=== PATIENT | male | born 1980 | race Caucasian/White ===

== ENCOUNTER 2019-09-15 10:00 | Day surgery (SDC) | payer BC ==
[~2019-09-15] VITALS: Ht 165.1 cm; Wt 118.2 kg
--- NOTE | ~2019-09-15 | OP ---
PATIENT NAME: KAYLIN SIERRA MEDICAL RECORD: [id number] :80 LOCATION:[facility] ADMISSION DATE: SURGEON: KENYON ESCALERA DO DATE OF OPERATION: 09/15/2019 PROCEDURE: Colonoscopy with polypectomy. INDICATIONS FOR PROCEDURE: Occult blood in stools and anemia. SCOPE: Olympus video pediatric colonoscope. MEDICATIONS: Propofol 1150 mg IV per anesthesia. WITHDRAWAL TIME: 8 minutes. ESTIMATED BLOOD LOSS: Minimal. COMPLICATIONS: None. FINDINGS AND DESCRIPTION OF PROCEDURE: Informed consent was given. The patient was made comfortable with the above medication. After reaching an adequate level of sedation by slow IV push, the patient was placed on his left side. A digital rectal examination was performed and it was normal. The endoscope was advanced under direct visualization through the rectum to the cecum, confirmed by the presence of the appendiceal orifice and ileocecal valve. The endoscope was slowly withdrawn and the mucosa was carefully examined. The prep quality was good. There were 5 polyps visualized on today's examination. One was located in the ascending colon. It was benign appearing sessile polyp, which measured approximately 4-5 mm in diameter. It was removed using hot snare and retrieved. In the transverse colon, there were 3 separate polyps, which were all sessile. They ranged in size from 4-mm in diameter to 1 cm in diameter. They were all removed using hot snare and retrieved. In the rectum, there was a single benign-appearing sessile polyp, which measured approximately 5-6 mm in diameter. It was removed using hot snare and retrieved. There were no diverticula visualized on today's examination. Retroflexion was performed in the rectum with visualization of grade I internal hemorrhoids without bleeding. The endoscope was withdrawn from the patient. The patient tolerated the procedure well and there were no complications. IMPRESSIONS: 1. Five polyps as described above, removed using hot snare. 2. Grade I internal hemorrhoids without bleeding. PLAN AND RECOMMENDATIONS: 1. Discharge home when recovery parameters are met. 2. Follow up biopsy specimen results. 3. High fiber diet. 4. Continue current medications. 5. Recall colonoscopy in 2-3 years based on number and size of polyps removed on today's examination. TRANSINT:[id number] Voice Confirmation ID: [id number] DOCUMENT ID: [id number] OPERATIVE REPORT [id number] KAYLIN SIERRA KENYON ESCALERA DO CC: [id number] DICTATION DATE: 09/15/19 1213 TYPE CUTTER: 09/15/19 1702 [facility] 09/15/19 [facility] [address] [id number]
[2019-09-15 10:20] LABS: MCH 27.4 pg (26.0-34.0); MCHC 32.5 g/dL (31.0-37.0); MCV 84.4 fL (80.0-100.0); MEAN PLATELET VOLUME 9.7 fL (7.4-10.4); RBC 4.74 10x6/uL (4.20-6.10); RDW 13.4 % (11.5-14.5); WBC 8.9 10x3/uL (4.8-10.8)
[2019-09-15 10:30] LABS: ANION GAP 13.1 mmol/L (8-16); CALCIUM 9.4 mg/dL (8.5-10.1); CARBON DIOXIDE 24.1 mmol/L (21.0-32.0); CREATININE - SERUM 1.7 mg/dL (0.6-1.3); POTASSIUM - SERUM 4.2 mmol/L (3.5-5.1)
[2019-09-15 11:01] VITALS: BP 145/98; Ht 165.1 cm; Wt 118.2 kg
[2019-09-15] MEDS ORDERED: OMEPRAZOLE40 MG PO (11:19)
[2019-09-15] MEDS ORDERED: ZETIA10 MG PO (11:20)
[2019-09-15] MEDS ORDERED: PRAVACHOL20 MG PO (11:20)
[2019-09-15] MEDS ORDERED: FENOGLIDE40 MG PO (11:21)
[2019-09-15] MEDS ORDERED: FERROUS SULFAT325 MG PO (11:21)
--- NOTE | 2019-09-15 14:00 | NUR ---
1320 DC'D HOME. TAKEN OUT VIA WC TO CAR WITH . ADVISED TO CALL OR COME BACK IF ANY PROBLEMS.
== END 2019-09-15 13:20 | disposition home or self-care (01) ==
LOC: D.OPS 10:00
PROVIDERS: Anesthesiology; ATTEND Internal Medicine Gastroenterology
DX: R19.5 Other fecal abnormalities (principal); D64.9 Anemia, unspecified; D12.6 Benign neoplasm of colon, unspecified; K64.0 First degree hemorrhoids; K21.9 Gastro-esophageal reflux disease without esophagitis

== ENCOUNTER 2019-11-12 05:59 | Day surgery (SDC) | payer BC ==
[~2019-11-12] VITALS: Ht 165.1 cm; Wt 117.7 kg
[~2019-11-12 05:59] MED LIST: FENOGLIDE40 MG PO; FERROUS SULFAT325 MG PO; OMEPRAZOLE40 MG PO; PRAVACHOL20 MG PO; ZETIA10 MG PO
[2019-11-12 06:24] LABS: HEMOGLOBIN 10.9 g/dL (13.5-17.5); MCHC 32.1 g/dL (31.0-37.0); MCV 84.2 fL (80.0-100.0); MEAN PLATELET VOLUME 9.8 fL (7.4-10.4); RBC 4.04 10x6/uL (4.20-6.10); RDW 13.4 % (11.5-14.5); WBC 7.9 10x3/uL (4.8-10.8)
[2019-11-12 06:43] VITALS: BMI 43.1
[2019-11-12 06:44] LABS: CALCIUM 8.8 mg/dL (8.5-10.1); CARBON DIOXIDE 26.9 mmol/L (21.0-32.0); CREATININE - SERUM 2.1 mg/dL (0.6-1.3); POTASSIUM - SERUM 3.9 mmol/L (3.5-5.1)
[2019-11-12 06:46] VITALS: BP 140/84; Ht 165.1 cm; Wt 117.7 kg
--- NOTE | 2019-11-12 08:41 | NUR ---
DC INSTRUCTIONS GIVEN TO PT/FAMILY. STATE UNDERSTANDING. DC'D IV CATH FULLY INTACT.
--- NOTE | 2019-11-12 08:55 | NUR ---
PT LEFT UNIT VIA WC AT 0848
--- NOTE | 2019-11-12 12:49 | OP ---
PATIENT NAME: KAYLIN SIERRA MEDICAL RECORD: [id number] :80 LOCATION:[facility] ADMISSION DATE: SURGEON: KENYON ESCALERA DO DATE OF OPERATION: 11/12/2019 PROCEDURE: EGD with biopsies. INDICATIONS FOR PROCEDURE: GERD and anemia. SCOPE: Olympus video gastroscope. MEDICATIONS: Propofol 350 mg IV per anesthesia. ESTIMATED BLOOD LOSS: Minimal. COMPLICATIONS: None. FINDINGS AND DESCRIPTION OF PROCEDURE: Informed consent was given. The patient was made comfortable with the above medication. After reaching an adequate level of sedation by slow IV push, the patient was placed on his left side. The endoscope was advanced under direct visualization through the mouth to the second portion of the duodenum. In the esophagus, there was some heterotopic gastric mucosa located in the proximal esophagus. Appearances were benign inlet patches. The mid and distal esophagus appeared normal. At the GE junction, there was evidence of LA class A reflux-induced esophagitis. Two cold forceps biopsies were taken from the squamocolumnar junction to rule out the presence of Metcalf's mucosa. The endoscope was advanced beyond the GE junction into the stomach and retroflexed to view the cardia, where a small sliding hiatal hernia was present. The fundus, body, and antrum of the stomach all appeared normal. Cold forceps biopsies were taken from the antrum and incisura to submit for histopathology and to rule out the presence of H. pylori. The endoscope was advanced beyond the pylorus into the duodenum, which appeared normal to the second portion. Cold forceps biopsies were taken from the second portion of the duodenum based on his history of anemia. The endoscope was withdrawn from the patient. The patient tolerated the procedure well and there were no complications. IMPRESSIONS: 1. LA class A reflux-induced esophagitis. 2. Small sliding hiatal hernia. 3. Nothing to indicate the reason for the patient's anemia. PLAN AND RECOMMENDATIONS: 1. Discharge home when recovery parameters are met. 2. Follow up biopsy specimen results. 3. GERD diet and reflux precautions. 4. Continue current medications including omeprazole, which the patient states is controlling his reflux symptoms very well. 5. Follow up in GI clinic as needed and notify clinic if symptoms worsen. 6. Consider alternative reasons from digestive tract bleeding for his anemia. 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
== END 2019-11-12 08:48 | disposition home or self-care (01) ==
LOC: D.OPS 05:59
PROVIDERS: Anesthesiology; ATTEND Internal Medicine Gastroenterology
DX: K21.9 Gastro-esophageal reflux disease without esophagitis (principal); D64.9 Anemia, unspecified; R19.5 Other fecal abnormalities